=== PATIENT | male | born 1985 | race African-American/Black ===

== ENCOUNTER 2017-07-17 11:55 | Emergency (ER) | payer MEDICAID ==
[~2017-07-17] VITALS: Ht 188 cm; Wt 80.0 kg
[2017-07-17 12:02] VITALS: BP 125/83
[2017-07-17] MEDS ORDERED: TETANUS, DIPHTHERIA, PERTUSSIS VAC/PF 0.5ML (>7YR OLD) IM ONE (13:15)
[2017-07-17] MEDS ORDERED: BACITRACIN ZINC OINT UDPKT TOP ONE (13:15)
== END 2017-07-17 13:36 | disposition home or self-care (01) ==
LOC: ER 12:25
DX: S61.511A Laceration without foreign body of right wrist, initial encounter (principal); F17.200 Nicotine dependence, unspecified, uncomplicated; W45.8XXA Other foreign body or object entering through skin, initial encounter; Y93.89 Activity, other specified; Y92.89 Other specified places as the place of occurrence of the external cause; Y99.8 Other external cause status
CPT/HCPCS: 90471; 90715; 99283; Z7610

== ENCOUNTER 2017-07-20 19:19 | Emergency (ER) | payer MEDICAID ==
[~2017-07-20] VITALS: Ht 188 cm; Wt 77.0 kg
[2017-07-20 20:29] VITALS: BP 137/77
== END 2017-07-20 23:08 | disposition left against medical advice (07) ==
LOC: ER 20:29
DX: Z53.21 Procedure and treatment not carried out due to patient leaving prior to being seen by health care provider (principal)

== ENCOUNTER 2020-02-14 01:02 | Emergency (ER) | payer MEDICAID ==
[~2020-02-14] VITALS: Ht 182.9 cm; Wt 91.0 kg
[2020-02-14] MEDS ORDERED: HYDROCODONE/ACETAMINOPHEN 5/325MG TABLET PO ONE (02:30)
[2020-02-14] MEDS ORDERED: MORPHINE SULFATE 4 MG/ML CPJ (NOT FOR IM USE) IV STA (04:17)
[2020-02-14] MEDS ORDERED: ONDANSETRON HCL 4MG/2ML INJ IV STA (04:17)
[2020-02-14] MEDS ORDERED: CEFAZOLIN 1000MG PREMIX 50 ML IV ONE (04:30)
[2020-02-14] MEDS ORDERED: SODIUM CHLORIDE 0.9% 1,000 ML IV ONE (04:30)
[2020-02-14] MEDS ORDERED: TETANUS, DIPHTHERIA, PERTUSSIS VAC/PF 0.5ML (>7YR OLD) IM ONE (06:45)
[2020-02-14] MEDS ORDERED: LIDOCAINE 1%/EPI 1:100,000 10 ML VIAL IJ ONE (06:45)
[2020-02-14] MEDS ORDERED: BACITRACIN ZINC OINT UDPKT TOP ONE (06:45)
[2020-02-14] MEDS ORDERED: LIDOCAINE HCL/EPINEPHRINE 1%-EPI 1:100,000 20 ML VIAL INFIL SCH (07:45)
[2020-02-14] MEDS ORDERED: MUPIROCIN 2% OINT 22GM TOP SCH (08:15)
[2020-02-14 11:30] VITALS: BP 134/80
== END 2020-02-14 12:02 | disposition home or self-care (01) ==
LOC: ER 01:02
DX: S01.511A Laceration without foreign body of lip, initial encounter (principal); S61.411A Laceration without foreign body of right hand, initial encounter; S80.211A Abrasion, right knee, initial encounter; F12.10 Cannabis abuse, uncomplicated; V49.88XA Car occupant (driver) (passenger) injured in other specified transport accidents, initial encounter; Y93.89 Activity, other specified; Y92.89 Other specified places as the place of occurrence of the external cause; Y99.8 Other external cause status
CPT/HCPCS: 70450; 70486; 71045; 72125; 73130; 73562; 96365; 96375; 99285; J0690; J2270; J2405; J3490; J7030

== ENCOUNTER 2022-04-01 14:12 | Emergency (ER) | payer MEDICAID, OTHER ==
[~2022-04-01] VITALS: Ht 190.5 cm; Wt 83.0 kg
[2022-04-01] MEDS ORDERED: IBUPROFEN 400MG TABLET PO ONE (16:30)
[2022-04-01 20:39] LABS: BASOPHILS % 1.3 % (0.0-2.0); EOSINOPHILS % 5.6 % (0.0-5.0); HEMATOCRIT. 41.1 % (42.0-52.0); HEMOGLOBIN. 14.1 g/dL (14.0-18.0); LYMPHOCYTES % 47.6 % (20.0-50.0); MEAN CORPUSCULAR HEMOGLOBIN 33.8 pg (28.0-32.0); MEAN CORPUSCULAR VOLUME 98.5 fL (80.0-94.0); MEAN PLATELET VOLUME 7.9 fl (7.4-10.4); MONOCYTES % 8.5 % (2.0-8.0); PLATELET 271 x1000/uL (130-400); RED BLOOD CELL COUNT 4.17 mill/uL (4.7-6.1); RED CELL DISTRIBUTION WIDTH 11.9 % (11.6-14.6)
[2022-04-01] MEDS ORDERED: IBUP-2028 MT (21:47)
[2022-04-01 21:50] LABS: CHLORIDE 101 mEq/L (98-107)
[2022-04-01] MEDS ORDERED: IBUPROFEN 400MG TABLET PO NR (22:00)
[2022-04-01 22:06] VITALS: BP 127/88
== END 2022-04-01 22:07 | disposition home or self-care (01) ==
LOC: ER 14:12
DX: R10.11 Right upper quadrant pain (principal)
CPT/HCPCS: 36415; 71045; 80053; 83880; 84484; 85025; 93005; 99285